=== PATIENT | female | born 1950 | race Caucasian/White ===

== ENCOUNTER → 2016-07-29 | Outpatient (CLI) | payer MEDICARE, BC | LOC: HEART CORB 11:05 | DX: R42 Dizziness and giddiness (principal); I10 Essential (primary) hypertension; R00.2 Palpitations; W19.XXXA Unspecified fall, initial encounter ==

== ENCOUNTER → 2016-08-03 | Outpatient (CLI) | payer MEDICARE, BC | LOC: HEART CORB 14:52 | DX: R42 Dizziness and giddiness (principal); I10 Essential (primary) hypertension; R00.2 Palpitations; W19.XXXA Unspecified fall, initial encounter | CPT/HCPCS: 93306 ==

== ENCOUNTER → 2020-07-22 | Outpatient (CLI) | payer MEDICARE, SELFPAY | LOC: MRI 08:42 → CATH 10:00 | DX: I95.1 Orthostatic hypotension (principal); R42 Dizziness and giddiness; R00.2 Palpitations; R29.6 Repeated falls; M54.5 Low back pain; G89.29 Other chronic pain; M48.062 Spinal stenosis, lumbar region with neurogenic claudication; M51.36 Other intervertebral disc degeneration, lumbar region; M47.816 Spondylosis without myelopathy or radiculopathy, lumbar region; M51.27 Other intervertebral disc displacement, lumbosacral region; M47.817 Spondylosis without myelopathy or radiculopathy, lumbosacral region; M48.07 Spinal stenosis, lumbosacral region | CPT/HCPCS: 72148 ==

== ENCOUNTER → 2020-11-19 | Outpatient (CLI) | payer MEDICARE | LOC: KOH-I 09:58 | DX: R27.0 Ataxia, unspecified (principal); M48.062 Spinal stenosis, lumbar region with neurogenic claudication; M50.21 Other cervical disc displacement, high cervical region; M50.30 Other cervical disc degeneration, unspecified cervical region; M25.78 Osteophyte, vertebrae; M48.02 Spinal stenosis, cervical region | CPT/HCPCS: 72141 ==

== ENCOUNTER → 2021-02-01 | Outpatient (CLI) | payer MEDICARE | LOC: KOH-I 10:23 | DX: M48.02 Spinal stenosis, cervical region (principal); G99.2 Myelopathy in diseases classified elsewhere | CPT/HCPCS: 72040 ==

== ENCOUNTER → 2021-05-14 | Outpatient (CLI) | payer MEDICARE | LOC: KOH-I 14:02 | DX: M48.02 Spinal stenosis, cervical region (principal) | CPT/HCPCS: 72040 ==

== ENCOUNTER → 2021-09-21 | Outpatient (CLI) | payer MEDICARE | LOC: EMI 09:33 | DX: M48.062 Spinal stenosis, lumbar region with neurogenic claudication (principal); R27.0 Ataxia, unspecified; M51.27 Other intervertebral disc displacement, lumbosacral region; M48.07 Spinal stenosis, lumbosacral region; M47.816 Spondylosis without myelopathy or radiculopathy, lumbar region; M51.86 Other intervertebral disc disorders, lumbar region | CPT/HCPCS: 72148 ==